=== PATIENT | female | born 1975 | race Caucasian/White ===

== ENCOUNTER 2025-07-22 18:09 | Inpatient (IN) | payer MEDICARE, MEDICAID, SELFPAY ==
[2025-07-22 18:12] VITALS: BP 139/87; PULSE 93; RESP 18; TEMP 36.6; O2SAT 94; BMI 41.9
--- NOTE | 2025-07-22 18:28 | W.ED.PSYCHS ---
HPI - Psych General: Chief Complaint: Psychiatric Symptoms Stated Complaint: Nervous Breakdown Time Seen by Provider: 07/22/25 18:26 History of Present Illness: 50-year-old female with a history of depression, asthma, diabetes, obesity, hypertension who presents to the emergency room with depression and suicidal thoughts. She says she feels like her life is falling apart and she wants to get help. She does not have a specific plan at this time. She has not been admitted for this in the past. Related Data Home Medications ?Medication ?Instructions ?Recorded ?Confirmed albuterol sulfate 90 mcg/actuation 1 inh inhalation QID 03/01/22 03/01/22 breath activated powder inhaler buspirone 15 mg tablet 15 mg PO BID 03/01/22 03/01/22 divalproex 500 mg tablet,delayed 1,500 mg PO .hs 03/01/22 03/01/22 release (Depakote) gabapentin 300 mg capsule 300 mg PO DAILY 03/01/22 03/01/22 glimepiride 2 mg tablet 2 mg PO DAILY 03/01/22 03/01/22 liothyronine 5 mcg tablet (Cytomel) 5 mcg PO DAILY 03/01/22 03/01/22 lisinopril 10 mg tablet 10 mg PO DAILY 03/01/22 03/01/22 metformin 500 mg tablet 500 mg PO BID 03/01/22 03/01/22 topiramate 25 mg tablet (Topamax) 25 mg PO DAILY 03/01/22 03/01/22 varenicline tartrate 1 mg tablet 1 mg PO BID 03/01/22 03/01/22 (Chantix) venlafaxine 37.5 mg tablet 37.5 mg PO DAILY 03/01/22 03/01/22 Previous Rx's ?Medication ?Instructions ?Recorded hydrocodone 5 mg-acetaminophen 325 1 tab PO Q4H PRN pain 4 days #20 03/01/22 mg tablet tabs Allergies Allergy/AdvReac Type Severity Reaction Status Date / Time lamotrigine (From Lamictal) Allergy Intermediate rash Verified 07/22/25 18:17 Penicillins Allergy rash Verified 07/22/25 18:17 Review of Systems Narrative: Constitutional symptoms: Negative except as documented in HPI. Skin symptoms: Negative except as documented in HPI. Eye symptoms: Negative except as documented in HPI. ENMT symptoms: Negative except as documented in HPI. Respiratory symptoms: Negative except as documented in HPI. Cardiovascular symptoms: Negative except as documented in HPI. Gastrointestinal symptoms: Negative except as documented in HPI. Genitourinary symptoms: Negative except as documented in HPI. Musculoskeletal symptoms: Negative except as documented in HPI. Neurologic symptoms: Negative except as documented in HPI. Psychiatric symptoms: Negative except as documented in HPI. Endocrine symptoms: Negative except as documented in HPI. PFSH ED PFSH: Social History Smoking and tobacco/nicotine status: current every day tobacco/nicotine user Physical Exam Narrative: EXAM NARRATIVE: General: Alert, no acute distress. Skin: Warm, dry. Head: Normocephalic, atraumatic. Neck: Supple, trachea midline. Eye: Extraocular movements are intact. Ears, nose, mouth and throat: mucosa moist. Cardiovascular: Regular, Normal peripheral perfusion. Respiratory: Lungs are clear to auscultation, respirations are non-labored, breath sounds are equal, Symmetrical chest wall expansion. Gastrointestinal: Soft, Nontender, Non distended Musculoskeletal: Normal ROM, no deformity. Neurological: Alert and oriented, No focal neurological deficit observed. Psychiatric: Cooperative, tearful, expresses suicidal thoughts Course Vital Signs: Vital signs: Vital Signs Temperature 97.9 F 07/22/25 18:12 Pulse Rate 93 07/22/25 18:12 Respiratory Rate 18 07/22/25 18:12 Blood Pressure 139/87 07/22/25 18:12 Pulse Oximetry 94 07/22/25 18:12 Oxygen Delivery Me thod Room Air 07/22/25 18:12 MDM - Psych Medical Decision Making Medical decision making: Patient's reason for coming to the emergency room depression and suicidal thoughts Social determinants: Patient is disabled I reviewed the patient's medical record. Only other visit here was in 2020 to urgent care I reviewed the patient's current home meds Patient takes medications for hypertension, diabetes, depression. Alternate historians: None available Differential diagnosis: Patient with reported depression and suicidal ideation. concerns for infection, alcohol intoxication, cardiac issues or other medical problems prior to psychiatric admission. Workup: labwork, ekg ordered to evaluate the pathologies and to clear the patient medically prior to psychiatric admission EKG: Time 1845. Rate 85. Normal sinus rhythm, No ST-T changes, no ectopy, normal NE & QRS intervals, This was reviewed and interpreted by myself the ER physician at 1850 Lab Review: Laboratory results were reviewed and interpreted by myself the emergency room physician. - Medically cleared. - EKG shows no ischemic changes. - Blood alcohol level is negative, -Tylenol and salicylate levels are negative. - Drug screen is positive for marijuana - No signs of infection, urinalysis clear and white count is not elevated - No anemia. - BUN and creatinine are within normal limits. Assessment of risk: - Level of risk moderate to high risk secondary to suicidal thoughts. - Was hospitalization considered? Patient is being admitted Reexamination: Patient remained stable. No increased work of breathing. No altered mental status. No focal motor deficits. Consultation: I spoke with Dr. Kincaid who is on-call for psychiatry who agrees to admission. If there are no beds we will attempt to transfer. If transfer is unsuccessful he will be admitted here tomorrow if there are openings. Assessment and plan: Depression Suicidal ideation -Admission to neuropsychiatric unit for continued evaluation and treatment. - All lab work was reviewed and interpreted personally by myself, the ER physician - Evaluation and treatment of this problem were appropriate in the emergency setting Lab Data 07/22/25 19:06 07/22/25 19:06 Laboratory Results WBC 8.67 10^3/uL (3.29-11.43) 07/22/25 19:06 RBC 4.48 10^6/uL (3.85-5.65) 07/22/25 19:06 Hgb 13.30 g/dL (11.27-16.99) 07/22/25 19:06 Hct 41.4 % (36-47) 07/22/25 19:06 MCV 92.4 fl (85-98) 07/22/25 19:06 MCH 29.7 pg (27-33) 07/22/25 19:06 MCHC 32.1 g/dL (30-55) 07/22/25 19:06 RDW 12.2 % (12.1-15.1) 07/22/25 19:06 Plt Count 367 10^3/cmm (157-399) 07/22/25 19:06 MPV 10.0 fL (7.4-10.4) 07/22/25 19:06 Neut % (Auto) 53.1 % 07/22/25 19:06 Lymph % (Auto) 34.8 % 07/22/25 19:06 [place] % (Auto) 7.3 % 07/22/25 19:06 Eos % (Auto) 3.7 % 07/22/25 19:06 Baso % (Auto) 0.8 % 07/22/25 19:06 Neut # (Auto) 4.60 10^3/uL (1.8-7.7) 07/22/25 19:06 Lymph # (Auto) 3.0 10^3/uL (0.8-4.8) 07/22/25 19:06 [place] # (Auto) 0.6 10^3/uL (0.2-0.9) 07/22/25 19:06 Eos # (Auto) 0.3 10^3/uL (0.0-0.8) 07/22/25 19:06 Baso # (Auto) 0.1 10^3/uL (0.0-0.1) 07/22/25 19:06 Nucleated RBC % (auto) 0 % 07/22/25 19:06 Nucleated RBCs # 0.0 /100WBC 07/22/25 19:06 Sodium 138 mmol/L (136-145) 07/22/25 19:06 Potassium 3.5 mmol/L (3.5-5.1) 07/22/25 19:06 Chloride 106 mmol/L (98-107) 07/22/25 19:06 Carbon Dioxide 20 mmol/L (22-29) L 07/22/25 19:06 Anion Gap 15.5 (5-19) 07/22/25 19:06 BUN 14 mg/dL (6-20) 07/22/25 19:06 Creatinine 0.7 mg/dL (0.5-0.9) 07/22/25 19:06 GFR Calculation 88.6 mL/min (90-130) L 07/22/25 19:06 Glucose 149 mg/dL (65-115) H 07/22/25 19:06 Calculated Osmolality 289 mOsm/kg (285-295) 07/22/25 19:06 Calcium 8.9 mg/dL (8.5-10.5) 07/22/25 19:06 Total Bilirubin 0.2 mg/dL (0.15-1.2) 07/22/25 19:06 AST 12 U/L (0-32) 07/22/25 19:06 ALT 22 U/L (0-33) 07/22/25 19:06 Alkaline Phosphatase 38 U/L (35-105) 07/22/25 19:06 Total Protein 7.7 g/dL (6.6-8.7) 07/22/25 19:06 Albumin 4.0 g/dL (3.5-5.2) 07/22/25 19:06 Globulin 3.7 g/dL (1.3-4.6) 07/22/25 19:06 TSH 1.12 uIU/mL (0.27-4.20) 07/22/25 19:06 HCG, Qual Negative (Negative) 07/22/25 18: Urine Color Yellow (Yellow) 07/22/25 18: Urine Appearance Clear (CLEAR) 07/22/25 18: Urine pH 7.0 (5-7) 07/22/25 18: Ur Specific [place] 1.036 (1.005-1.030) H 07/22/25 18: Urine Protein Negative (Negative) 07/22/25 18: Urine Glucose (UA) 3+ (Normal) H 07/22/25 18: Urine Ketones Trace (Negative) 07/22/25 18: Urine Blood Negative (Negative) 07/22/25 18: Urine Nitrate Negative (Negative) 07/22/25 18: Urine Bilirubin Negative (Negative) 07/22/25 18: Urine Urobilinogen 1.0 mg/dL (Negative) 07/22/25 18: Ur Leukocyte Esterase Negative (Negative) 07/22/25 18:29 Urine RBC 6-10 /hpf (0-2) 07/22/25 18: Urine WBC 0-5 /hpf (0-5) 07/22/25 18: Ur Squamous Epith Cells 0-5 /hpf (0-5) 07/22/25 18: Amorphous Sediment Not Reportable 07/22/25 18: Urine Bacteria None seen /hpf (NONE) 07/22/25 18: Hyaline Casts 0-4 /lpf H 07/22/25 18:29 Urine Yeast Trace /hpf 07/22/25 18:29 Salicylates < 0.3 mg/dL (3-10) L 07/22/25 19:06 Urine Opiates Screen Negative ng/mL (Negative) 07/22/25 18:29 Acetaminophen < 5.0 ug/mL (10-30) L 07/22/25 19:06 Ur Barbiturates Screen Negative ng/mL (Negative) 07/22/25 18:29 Ur Phencyclidine Scrn Negative ng/mL (Negative) 07/22/25 18:29 Ur Amphetamines Screen Negative ng/mL (Negative) 07/22/25 18:29 U Benzodiazepines Scrn Negative ng/mL (Negative) 07/22/25 18:29 Urine Cocaine Screen Negative ng/mL (Negative) 07/22/25 18:29 U Marijuana (THC) Screen Positive ng/mL (Negative) H 07/22/25 18:29 Ethyl Alcohol < 10 mg/dL (0-10) 07/22/25 19:06 No radiology studies performed this visit Discharge Plan Discharge Patient Disposition: Admitted As Inpatient Clinical Impression: Suicidal ideation, Depression Condition: Stable Coding Level of Care Code ED [place] Bander for Vincent Polo
--- NOTE | 2025-07-22 18:45 | ECG_ITS ---
[facility] Test Date: 2025-07-22 Pat Name: Jennifer Mckenzie Department: Room: Gender: Female Package Handler: : [id number] Requested By: Kaia Casiano Order Number: [id number] Murillo MD: Bradley Aguila M.D. Measurements Intervals [place] Rate: 85 P: 67 VT: 163 QRS: 40 QRSD: 94 T: 31 QT: 380 QTc: 452 Interpretive Statements SINUS RHYTHM No previous ECG available for comparison Electronically Signed On 07-23-2025 20:15:36 BOILER TESTER by Bradley Aguila M.D. [email or web address] [id number]
[2025-07-22 18:53] LABS: HCG Qualitative Urine. Negative (Negative)
--- NOTE | 2025-07-22 19:05 | PC.NURSE ---
96 hr rights reviewed with pt @7910 with assistance of [employer] airconditioning drafting officer . All education reviewed with pt at this time. Pt verbalized understanding to hold parameters Copy of rights was given to pt. Pt provided a sandwich. No further needs,
[2025-07-22 19:14] LABS: Hematocrit 41.4 % (36-47); Hemoglobin 13.30 g/dL (11.27-16.99); Mean Corpuscular HGB Conc 32.1 g/dL (30-55); Mean Corpuscular Hemoglobin 29.7 pg (27-33); Mean Corpuscular Volume 92.4 fl (85-98); Nucleated Red Blood Cells % 0 %; Platelet Count 367 10^3/cmm (157-399); Red Blood Count 4.48 10^6/uL (3.85-5.65); White Blood Count 8.67 10^3/uL (3.29-11.43)
[2025-07-22 19:15] LABS: Glucose Urine UA 3+ (Normal); Nitrate Urine Negative (Negative)
[2025-07-22 19:17] LABS: Add Urine Microscopic? YES
[2025-07-22 19:23] LABS: PCP Screen Urine Negative (Negative)
[2025-07-22 19:31] LABS: Specific Gravity, Urine 1.036 (1.005-1.030)
[2025-07-22 19:32] LABS: UA Slide Review UA Slide Review Perf
[2025-07-22 19:44] LABS: Alanine Aminotransferase 22 U/L (0-33); Albumin Level 4.0 g/dL (3.5-5.2); Alkaline Phosphatase 38 U/L (35-105); Anion Gap 15.5 (5-19); Aspartate Amino Transferase 12 U/L (0-32); Blood Urea Nitrogen 14 mg/dL (6-20); Calcium 8.9 mg/dL (8.5-10.5); Carbon Dioxide 20 mmol/L (22-29); Chloride 106 mmol/L (98-107); Globulin 3.7 g/dL (1.3-4.6); Glucose 149 mg/dL (65-115); Osmolality Calculated 289 mOsm/kg (285-295); Potassium 3.5 mmol/L (3.5-5.1); Sodium 138 mmol/L (136-145); Thyroid Stimulating Hormone 1.12 uIU/mL (0.27-4.20); Total Protein 7.7 g/dL (6.6-8.7)
[2025-07-22 19:49] LABS: Acetaminophen < 5.0 ug/mL (10-30); Alcohol Level < 10 mg/dL (0-10); Salicylate < 0.3 mg/dL (3-10)
[2025-07-22 22:15] VITALS: BP 123/79; PULSE 84; O2SAT 98
[2025-07-22 23:29] VITALS: BP 129/88; PULSE 86; RESP 17; TEMP 36.7; O2SAT 96
--- NOTE | 2025-07-22 23:50 | PC.ADMIT ---
809 [facility] Admission Note:Pt states that she brought herself to the ER where she was placed on a 96 hour hold after making passive SI comments. She is tearful and states that she is tired and done . She states that she called her daughter in law and told her that she didn't want to see her grandchildren anymore. Pt states that her and son are both . She states that she used to have home health, but stopped it and moved in with her caregiver and her family. She states that she has paranoia that she is a burden to them and she also mentions having paranoia that someone is messing with her medications. She has a hx of bipolar, diabetes and htn. She has a psychiatrist that she is seeing in [place] that she really likes. She is just wanting to get her emotions better under control and hopeful that she can get out and living on her own again. The patient,Jennifer Mckenzie,50 y/o, was given written information regarding hospital policies, unit procedures and contact persons. Patient's smoking status: current every day smoker. Vital Signs - 8 hr 07/22/25 18:12 07/22/25 22:15 07/22/25 23:29 Temperature 97.9 F 98.1 F Pulse Rate 93 84 86 Respiratory Rate 18 17 Blood Pressure 139/87 123/79 129/88 Pulse Oximetry 94 98 96 Oxygen Delivery Method Room Air Room Air Room Air
[2025-07-23 06:00] VITALS: BP 101/58; PULSE 74; RESP 18; TEMP 36.7; O2SAT 95
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
[2025-07-23] MEDS: DAPAGLIFLOZIN 5 MG TABLET PO (10:05)
[2025-07-23] MEDS: insulin glargine 100 units/1 mL 8 UNIT SUBCUT (11:02)
[2025-07-23 13:51] VITALS: BP 129/82; PULSE 106; RESP 16; TEMP 36.5; O2SAT 96
[2025-07-23] MEDS: ATORVASTATIN 20 MG TABLET PO (17:33)
[2025-07-23 19:56] VITALS: BP 117/74; PULSE 82; RESP 17; TEMP 36.8; O2SAT 97
[2025-07-23] MEDS: venlafaxine ER (24HR) 75 mg Capsule PO (20:23)
[2025-07-23] MEDS: divalproex DR 500 mg Tablet 1500 MG PO (20:24)
[2025-07-23] MEDS: venlafaxine ER (24HR) 37.5 mg Capsule PO (20:25)
--- NOTE | 2025-07-23 21:22 | PC.NURSE ---
MEDICATION This nurse notified Dr. Kincaid that there were two orders for the same med in pt. MAR Venlafaxine 75mg, Venlafaxine 37.5mg were in the MAR scheduled for 2099 this nurse wanted to be sure that this was accurate provider ordered that this nurse ask pt. how she takes the medication at home. Pt. stated that pt. takes both medications at night.
[2025-07-24 06:00] VITALS: BP 129/86; PULSE 97; RESP 18; TEMP 36.4; O2SAT 97
[2025-07-24] MEDS: DAPAGLIFLOZIN 5 MG TABLET PO (10:46)
[2025-07-24 13:44] VITALS: BP 117/74; PULSE 76; RESP 16; TEMP 36.6; O2SAT 96
[2025-07-24] MEDS: ATORVASTATIN 20 MG TABLET PO (18:11)
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
[2025-07-24] MEDS: divalproex DR 500 mg Tablet 1500 MG PO (20:31)
[2025-07-24] MEDS: venlafaxine ER (24HR) 37.5 mg Capsule PO (20:31)
[2025-07-24] MEDS: venlafaxine ER (24HR) 75 mg Capsule PO (20:31)
[2025-07-24 20:51] VITALS: BP 123/69; PULSE 89; RESP 18; TEMP 36.8; O2SAT 96
[2025-07-25 06:00] VITALS: BP 106/63; PULSE 71; RESP 18; TEMP 36.4; O2SAT 93
[2025-07-25] MEDS: venlafaxine ER (24HR) 37.5 mg Capsule PO (08:06)
[2025-07-25] MEDS: DAPAGLIFLOZIN 5 MG TABLET PO (08:06)
[2025-07-25] MEDS: insulin glargine 100 units/1 mL 8 UNIT SUBCUT (08:07)
[2025-07-25 13:44] VITALS: BP 114/67; PULSE 85; RESP 16; TEMP 36.4; O2SAT 95
[2025-07-25] MEDS: ATORVASTATIN 20 MG TABLET PO (17:26)
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
[2025-07-25] MEDS: divalproex DR 500 mg Tablet 1500 MG PO (20:59)
[2025-07-25] MEDS: venlafaxine ER (24HR) 150 mg Capsule PO (20:59)
[2025-07-25 21:19] VITALS: BP 114/75; PULSE 89; RESP 16; TEMP 36.6; O2SAT 96
[2025-07-26 06:00] VITALS: BP 105/67; PULSE 83; RESP 16; TEMP 36.6; O2SAT 95
[2025-07-26] MEDS: insulin glargine 100 units/1 mL 8 UNIT SUBCUT (08:23)
[2025-07-26] MEDS: DAPAGLIFLOZIN 5 MG TABLET PO (08:24)
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
[2025-07-26 14:00] VITALS: BP 121/73; PULSE 82; RESP 16; TEMP 36.9; O2SAT 93
[2025-07-26 14:15] VITALS: BP 121/73; PULSE 82; RESP 16; TEMP 36.9; O2SAT 93
[2025-07-26] MEDS: ATORVASTATIN 20 MG TABLET PO (17:28)
[2025-07-26 20:05] VITALS: BMI 43.1
[2025-07-26 20:40] VITALS: BP 118/73; PULSE 79; RESP 18; TEMP 36.7; O2SAT 95
[2025-07-26] MEDS: divalproex DR 500 mg Tablet 1500 MG PO (21:09)
[2025-07-26] MEDS: venlafaxine ER (24HR) 150 mg Capsule PO (21:09)
[2025-07-27 05:53] VITALS: RESP 14
--- NOTE | 2025-07-27 05:53 | PC.NURSE ---
pt resting peacefully after having trouble falling to sleep, vitals not collected per nurse
[2025-07-27] MEDS: insulin glargine 100 units/1 mL 8 UNIT SUBCUT (07:46)
[2025-07-27] MEDS: DAPAGLIFLOZIN 5 MG TABLET PO (07:54)
[2025-07-27 14:00] VITALS: BP 119/79; PULSE 98; RESP 17; TEMP 36.8; O2SAT 98
[2025-07-27] MEDS: ATORVASTATIN 20 MG TABLET PO (17:46)
--- NOTE | 2025-07-27 18:39 | P.NPUPN_ITS ---
Subjective NPU 2 Subjective: Patient presented today reporting that things are going fine. She reports that coming here was a really good decision and that things are getting better each day slowly but surely. We discussed the tentative plan for discharge tomorrow but that Dr. Whitt would be here and he would be making those decisions. We discussed that he would have my documentation and a discussion with me prior to meeting her so there would be no reason for things not to be a smooth transition. She denied any side effects to her medication. Mental Status Exam 2 MSE Comments: This is an obese versus morbidly obese white female in hospital scrubs with limited grooming but adequate eye contact. No abnormal movements except for mild psychomotor agitation. Cooperative with exam in mild distress. Speech was normal rate and volume. Mood described as getting better, affect congruent. Thought process organized. Thought content: Patient denied suicidal or homicidal ideation, there were no delusions reported or noted, she denied any auditory or visual hallucinations. Attention and concentration appeared mostly intact and memory appeared reliable but none were formally tested. She is alert and oriented x 3. Insight and judgment are improving and impulse control is limited but improving. Vitals/I&O/Wt Last Vital Signs Temp 97.6 F 07/28/25 06:00 Pulse 75 07/28/25 06:00 Resp 17 07/28/25 06:00 BP 115/69 07/28/25 06:00 Pulse Ox 96 07/28/25 06:00 O2 Del Method Room Air 07/28/25 06:00 07/27/25 07/27/25 07/28/25 14:59 22:59 06:59 Intake Total 0 / 0 Balance 0 / 0 Weight last 48 hrs Weight 117.537 kg Data NPU 07/22/25 19:06 07/22/25 19:06 A&P Assessment and plan 1. Suicidal ideation: 2. Depression: 3. GETACHEW (generalized anxiety disorder): 4. Bereavement: Plan: This is a 50-year-old white female with a long history of addiction with current cannabis use, significant history of trauma both adult and childhood, with active treatment from her provider in [place] reporting that she is really struggling now to manage her symptoms and keep herself safe. Emotional lability with marked mood instability. History of self-injurious behavior and recurrent suicidal ideation, both passive and active, particularly following significant bereavement (loss of in 2013 and son at age 24). Paranoid ideation present, with irrational thoughts regarding caregiver. Anxiety characterized by persistent worry and anticipatory dread. History of substance use disorder, including methamphetamine and cannabis, with sustained remission from methamphetamine since approximately 2011. Multiple prior psychiatric hospitalizations. Plan Reviewed current psychiatric medications and evaluated dosing for potential adjustments to enhance mood stability. Daily follow-up visits planned during hospitalization until discharge or transition of care on Monday. 1. Continue current medication. Give a one-time dose of Effexor XR 37.5 and then increase Effexor XR to 150 mg p.o. daily at bedtime. Increase the Effexor XR 150 mg p.o. daily at bedtime. 2. Encourage individual, group and milieu therapy. 3. Continue every 15 minute checks for safety. 4. Obtain collateral information. 5. Evaluate against the backdrop of the 96-hour hold. 6. Encouraged sober living treatment after discharge at the highest level care to which she is willing to commit. 7. Tentative plan for discharge tomorrow. PDMP PDMP Reviewed: Not Reviewed Involuntary Hold Information 2 Hold Status: Legal Status: 96 Hour Hold Date/Time Hold Expires: 07/29/25 @ 00:01 Attestations NPU 2 Medical Necessity Statement*: Inpatient hospitalization is medically necessary and the clinically appropriate intervention at this time. We will monitor/initiate medications and make changes as indicated. Likely length of stay 1-3 days. Coding Level of Care Code Acute Code for Chg Fwd Diagnoses Suicidal ideation R45.851 Depression F32.A GETACHEW (generalized anxiety disorder) F41.1 Bereavement Z63.4
[2025-07-27] MEDS: divalproex DR 500 mg Tablet 1500 MG PO (20:18)
[2025-07-27] MEDS: venlafaxine ER (24HR) 150 mg Capsule PO (20:18)
[2025-07-27 21:32] VITALS: BP 128/83; PULSE 98; RESP 18; TEMP 36.9; O2SAT 96
[2025-07-28 06:00] VITALS: BP 115/69; PULSE 75; RESP 17; TEMP 36.4; O2SAT 96
[2025-07-28] MEDS: DAPAGLIFLOZIN 5 MG TABLET PO (08:29)
[2025-07-28] MEDS: insulin glargine 100 units/1 mL 8 UNIT SUBCUT (08:29)
--- NOTE | 2025-07-28 09:45 | PC.NURSE ---
prn Vistaril 50 mg given po per pt c/o stated anxiety
[2025-07-28 14:00] VITALS: BP 111/71; PULSE 89; RESP 16; TEMP 37.2; O2SAT 96
--- NOTE | 2025-07-28 14:55 | DCPLANNER ---
IMM was given to pt and rights explained and copy placed in pts file.
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
[2025-07-28 15:57] VITALS: BP 111/71; PULSE 89; RESP 16; TEMP 37.2; O2SAT 96
[2025-07-28 16:32] VITALS: BP 111/71; PULSE 89; RESP 16; TEMP 37.2; O2SAT 96
[2025-07-28 16:38] VITALS: BP 111/71; PULSE 89; RESP 16; TEMP 37.2; O2SAT 96
--- NOTE | 2025-07-28 16:49 | DCPLANNER ---
IMM was printed and right explained to pt and copy placed in pts file.
[2025-07-28] MEDS: ATORVASTATIN 20 MG TABLET PO (16:53)
== END 2025-07-28 16:54 | disposition home or self-care (01) | DRG 881 ==
LOC: ER 19:58 → NP 22:25
PROVIDERS: Admitting Provider Psychiatry & Neurology Psychiatry; Emergency Provider Emergency Medicine; Visit Provider Psychiatry & Neurology Psychiatry
DX: F32.A Depression, unspecified (principal); R45.851 Suicidal ideations; Z68.41 Body mass index [BMI] 40.0-44.9, adult; J45.909 Unspecified asthma, uncomplicated; E11.9 Type 2 diabetes mellitus without complications; E66.01 Morbid (severe) obesity due to excess calories; I10 Essential (primary) hypertension; F41.1 Generalized anxiety disorder; E78.00 Pure hypercholesterolemia, unspecified; F17.200 Nicotine dependence, unspecified, uncomplicated; Z79.4 Long term (current) use of insulin; Z63.4 Disappearance and death of family member; Z81.8 Family history of other mental and behavioral disorders
CPT/HCPCS: 36415; 36416; 80053; 80306; 80307; 81001; 81025; 82962; 84443; 85025; 93005; 96372; 97150; 97165; 99285; J1815; J9999